=== PATIENT | female | born 1955 ===

== ENCOUNTER 2021-03-06 17:44 | Emergency (ER) | payer MEDICARE, OTHER ==
[2021-03-06] MEDS ORDERED: Sodium Chloride 0.9% 10 ML Syringe FLUSH PRN (17:51)
[2021-03-06] MEDS ORDERED: 50% Dextrose in Water 50 ML Syringe IVPUSH PRN (17:52)
[2021-03-06] MEDS ORDERED: Glucagon,Human Recombinant 1 MG Vial IM PRN (17:52)
[2021-03-06] MEDS: Insulin Regular, Human 100 Units/ML 3 ML Vial IV ONE ×2 (18:00→20:41)
[2021-03-06] MEDS: Sodium Chloride 0.9% 1,000 ML IV ONE (18:00)
--- NOTE | 2021-03-06 18:40 | EDM.PDOC ---
ED HPI GENERAL MEDICAL PROBLEM - General Chief Complaint: Diabetic Complaint Stated Complaint: HYPOGLYCEMIA Time Seen by Provider: 03/06/21 17:50 Source of Information: Reports: Other (friends ) History Limitations: Reports: Altered Mental Status - History of Present Illness INITIAL COMMENTS - FREE TEXT/NARRATIVE: patient with a h/o T1DM who was brought to the ER due to confusion and AMS. blood sugar check by EMS - was unreadable - high. patient is from [place] and visiting here on a trip. Per her friends, she was doing ok yesterday, but this morning she was complaining of not feeling well. Has an insulin pump that has been recently installed. Patient was last seen normal was this morning,, but at 5pm, her friends returned back to the cabin where she was, and found her in a distress and she complained to them that she isn't feeling well. - Related Data Allergies Allergy/AdvReac Type Severity Reaction Status Date / Time Unable to Assess Allergy Unverified 03/06/21 19:37 Home Meds: Home Meds . [Unable to Verify Home Med List] 03/06/21 [History] Past Medical History Endocrine/Metabolic History: Reports: Diabetes, Type I ED ROS GENERAL - Review of Systems Review Of Systems: Unable To Obtain (due to patient's confusion and AMS) Reason Not Obtained: confusion ED EXAM GENERAL NO PERIP PULSE - Physical Exam Exam: See Below Exam Limited By: Altered Mental Status General Appearance: Lethargic, Moderate Distress, Other (fruity smell ) Eye Exam: Bilateral Eye: EOMI Head: Atraumatic, Normocephalic Neck: Normal Inspection Respiratory/Chest: No Respiratory Distress, Lungs Clear Cardiovascular: Normal Peripheral Pulses, Regular Rate, Rhythm GI/Abdominal: Normal Bowel Sounds, Soft, Non-Tender Extremities: Normal Inspection, Normal Range of Motion Neurological: Disoriented Course - Vital Signs Last Recorded V/S: Last Vital Signs Temp 36.7 C 03/06/21 17:44 Pulse 73 03/06/21 21:05 Resp 16 03/06/21 21:05 BP 106/38 L 03/06/21 21:05 Pulse Ox 75 L 03/06/21 21:05 - Orders/Labs/Meds Orders: Active Orders 24 hr Category Date Time Status EKG Documentation Completion [RC] ASDIRECTED Care 03/06/21 17:51 Active Pearson Catheter Insertion [Insert Urinary Catheter] [OM. Care 03/06/21 18:00 Ordered PC] Q24H Urinary Catheter Assessment [RC] ASDIRECTED Care 03/06/21 18:00 Active GLUCOSE RANDOM [CHEM] Stat Lab 03/06/21 20:00 Ordered Dextrose 50% in Water Med 03/06/21 17:52 Active 50 ml IVPUSH ASDIRECTED PRN Glucagon,Human Recombinant [GlucaGen] Med 03/06/21 17:52 Active 1 mg IM ASDIRECTED PRN Insulin Regular, Human [NovoLIN R] 100 unit Med 03/06/21 19:00 Active Sodium Chloride 0.9% [Normal Saline] 100 ml IV TITRATE Lactated Ringers [Ringers, Lactated] 1,000 ml Med 03/06/21 20:17 Active IV BOLUS Sodium Chloride 0.9% [Normal Saline] 1,000 ml Med 03/06/21 19:00 Active IV ASDIRECTED Sodium Chloride 0.9% [Saline Flush] Med 03/06/21 17:51 Active 10 ml FLUSH ASDIRECTED PRN Saline Lock Insert [OM.PC] Routine Oth 03/06/21 17:51 Ordered Medication Orders Dextrose/Water (50% Dextrose In Water 50 Ml Syringe) 50 ml IVPUSH ASDIRECTED PRN PRN Reason: Hypoglycemia Glucagon (Glucagon,Human Recombinant 1 Mg Vial) 1 mg IM ASDIRECTED PRN PRN Reason: Hypoglycemia Insulin Human Regular 100 unit (/ Sodium Chloride) 100 mls @ 9.072 mls/hr IV TITRATE SARKIS; Protocol Last Admin: 03/06/21 19:07 Dose: 0.1 units/kg/hr, 9.072 mls/hr Documented by: GRISELDA Cosigned by: LELO Sodium Chloride (Normal Saline) 1,000 mls @ 999 mls/hr IV ASDIRECTED SARIKS Last Admin: 03/06/21 19:19 Dose: 999 mls/hr Documented by: SHIVA Lactated Ringer's (Ringers, Lactated) 1,000 mls @ 500 mls/hr IV BOLUS ONE Stop: 03/06/21 22:16 Last Admin: 03/06/21 20:18 Dose: 500 mls/hr Documented by: GRISELDA Sodium Chloride (Sodium Chloride 0.9% 10 Ml Syringe) 10 ml FLUSH ASDIRECTED PRN PRN Reason: Keep Vein Open Labs: Laboratory Tests 03/06/21 03/06/21 03/06/21 Range/Units 17:20 17:20 18:20 WBC 24.5 H* (4.0-11.0) K/uL RBC 3.35 L (3.80-5.80) M/uL Hgb 10.5 L (11.5-16.5) g/dL Hct 37.1 (37.0-47.0) % MCV 111 H (76-96) fL MCH 31.3 (27.0-32.0) pg MCHC 28.3 L (31.0-35.0) g/dL RDW 13.9 (11.0-16.0) % Plt Count 380 (150-500) K/uL MPV 11.5 H (6.0-10.0) fL ABG pH (7.35-7.45) ABG pCO2 (35-45) mmHg ABG pO2 (80-105) mmHg ABG HCO3 (22-26) mmol/L ABG O2 Saturation (95-98) % ABG Base Excess (-2-2) O2 Delivery Device Sodium 120 L (136-145) mmol/L Potassium 6.7 H* (3.5-5.1) mmol/L Chloride 82 L* (98-107) mmol/L Carbon Dioxide 8.9 L* (21.0-32.0) mmol/L Anion Gap 35.8 H (5.0-15.0) mmol/L BUN 83 H* (8-26) mg/dL Creatinine 3.45 H* (0.55-1.02) mg/dL Est Cr Clr Drug Dosing TNP Estimated GFR (MDRD) 13 L (>60) MLS/MIN BUN/Creatinine Ratio 24.1 (6-25) Glucose > 1200 H* (74-100) mg/dL Calcium 8.4 L (8.5-10.1) mg/dL Total Bilirubin 1.7 H (0.0-1.0) mg/dL AST 95 H (15-37) U/L ALT 74 (12-78) U/L Alkaline Phosphatase 102 (46-116) U/L Total Protein 6.3 L (6.4-8.2) g/dL Albumin 3.6 (3.4-5.0) g/dL Globulin 2.7 (2.2-4.2) g/dL Albumin/Globulin Ratio 1.3 (0.8-2.0) Urine Color Yellow Urine Appearance Clear (CLEAR) Urine pH 5.0 (5.0-8.0) Ur Specific [place] 1.025 (1.003-1.030) Urine Protein Negative (NEGATIVE) mg/dL Urine Glucose (UA) 500 H (NEGATIVE) mg/dL Urine Ketones 15 H (NEGATIVE) mg/dL Urine Occult Blood Trace-lysed H (NEGATIVE) Urine Nitrite Negative (NEGATIVE) Urine Bilirubin Negative (NEGATIVE) Urine Urobilinogen 0.2 (0.2-1.0) E.U./dL Ur Leukocyte Esterase Negative (NEGATIVE) U Hyaline Cast (Auto) Few /HPF Urine RBC 0-5 H /HPF Urine WBC 0-5 H /HPF Ur Squamous Epith Cells Few /HPF Ketones Large H (NEGATIVE) SARS-CoV-2 RNA (KRISTEN) (NEGATIVE) 03/06/21 03/06/21 03/06/21 Range/Units 18:45 19:44 19:58 WBC (4.0-11.0) K/uL RBC (3.80-5.80) M/uL Hgb (11.5-16.5) g/dL Hct (37.0-47.0) % MCV (76-96) fL MCH (27.0-32.0) pg MCHC (31.0-35.0) g/dL RDW (11.0-16.0) % Plt Count (150-500) K/uL MPV (6.0-10.0) fL ABG pH 6.97 L* (7.35-7.45) ABG pCO2 20.4 L (35-45) mmHg ABG pO2 77.5 L (80-105) mmHg ABG HCO3 4.7 L (22-26) mmol/L ABG O2 Saturation 85.8 L (95-98) % ABG Base Excess -27.1 L (-2-2) O2 Delivery Device Room air Sodium 122 L (136-145) mmol/L Potassium 5.7 H (3.5-5.1) mmol/L Chloride 86 L* (98-107) mmol/L Carbon Dioxide 8.5 L* (21.0-32.0) mmol/L Anion Gap 33.2 H (5.0-15.0) mmol/L BUN 80 H* (8-26) mg/dL Creatinine 3.57 H* (0.55-1.02) mg/dL Est Cr Clr Drug Dosing 15.28 Estimated GFR (MDRD) 13 L (>60) MLS/MIN BUN/Creatinine Ratio 22.4 (6-25) Glucose > 1200 H* (74-100) mg/dL Calcium 7.6 L (8.5-10.1) mg/dL Total Bilirubin (0.0-1.0) mg/dL AST (15-37) U/L ALT (12-78) U/L Alkaline Phosphatase (46-116) U/L Total Protein (6.4-8.2) g/dL Albumin (3.4-5.0) g/dL Globulin (2.2-4.2) g/dL Albumin/Globulin Ratio (0.8-2.0) Urine Color Urine Appearance (CLEAR) Urine pH (5.0-8.0) Ur Specific [place] (1.003-1.030) Urine Protein (NEGATIVE) mg/dL Urine Glucose (UA) (NEGATIVE) mg/dL Urine Ketones (NEGATIVE) mg/dL Urine Occult Blood (NEGATIVE) Urine Nitrite (NEGATIVE) Urine Bilirubin (NEGATIVE) Urine Urobilinogen (0.2-1.0) E.U./dL Ur Leukocyte Esterase (NEGATIVE) U Hyaline Cast (Auto) /HPF Urine RBC /HPF Urine WBC /HPF Ur Squamous Epith Cells /HPF Ketones (NEGATIVE) SARS-CoV-2 RNA (KRISTEN) Negative (NEGATIVE) Meds: Medications Generic Name Dose Route Start Last Admin Trade Name Freq PRN Reason Stop Dose Admin Dextrose/Water 50 ml 03/06/21 17:52 50% Dextrose In Water 50 Ml Syringe IVPUSH ASDIRECTED PRN Hypoglycemia Glucagon 1 mg 03/06/21 17:52 Glucagon,Human Recombinant 1 Mg Vial IM ASDIRECTED PRN Hypoglycemia Insulin Human Regular 100 unit 100 mls @ 9.072 mls/hr 03/06/21 19:00 03/06/21 19:07 / Sodium Chloride IV 0.1 units/kg/hr TITRATE SARKIS 9.072 mls/hr Administration Protocol 0.1 UNITS/KG/HR Sodium Chloride 1,000 mls @ 999 mls/hr 03/06/21 19:00 03/06/21 19:19 Normal Saline IV 999 mls/hr ASDIRECTED SARKIS Administration Lactated Ringer's 1,000 mls @ 500 mls/hr 03/06/21 20:17 03/06/21 20:18 Ringers, Lactated IV 03/06/21 22:16 500 mls/hr BOLUS ONE Administration Sodium Chloride 10 ml 03/06/21 17:51 Sodium Chloride 0.9% 10 Ml Syringe FLUSH ASDIRECTED PRN Keep Vein Open Discontinued Medications Generic Name Dose Route Start Last Admin Trade Name Freq PRN Reason Stop Dose Admin Sodium Chloride 1,000 mls @ 999 mls/hr 03/06/21 17:52 03/06/21 18:00 Normal Saline IV 03/06/21 18:52 999 mls/hr .BOLUS ONE Administration Insulin Human Regular 10 unit 03/06/21 17:52 03/06/21 18:00 Insulin Regular, Human 100 Units/Ml 3 Ml Vial IV 03/06/21 17:53 10 units ONETIME ONE Administration Sodium Bicarbonate 5 meq 03/06/21 19:07 03/06/21 19:13 Sodium Bicarbonate 4.2% 5 Meq/10 Ml Syringe IVPUSH 03/06/21 19:08 5 meq NOW STA Administration - Re-Assessments/Exams Free Text/Narrative Re-Assessment/Exam: IV line was started. bedside sugar check is >600 IVF bolus NS 2 liter insulin 10 units regular IV labs including CBC, CMP, ABG and UA. labs significant for BS 1200, Cr 3.8, K 6.5., Na 120 Insulin drip was started 0.1mg/kg/hr Bicarb bolus as well given the critical nature of the disease presentation - decision to transfer to higher level of care. [facility] - no available beds Contacted [facility]- spoke with Sports Manager Dr. Paul - who accepted the patient 03/06/21 19:55 Until flight crew arrives - will resume blood check q1hr Departure - Departure Time of Disposition: 21:18 Disposition: DC/Tfer to [facility] Condition: Serious Clinical Impression: JARRETT (acute kidney injury), Hyperkalemia DKA (diabetic ketoacidoses) Qualifiers: Diabetes mellitus type: type 1 Diabetes mellitus complication detail: with coma Qualified Code(s): E10.11 - Type 1 diabetes mellitus with ketoacidosis with coma - Discharge Information *PRESCRIPTION DRUG MONITORING PROGRAM REVIEWED*: Not Applicable *COPY OF PRESCRIPTION DRUG MONITORING REPORT IN PATIENT SHE[place]BY: Not Applicable Referrals: PCP,None [Primary Care Provider] - Forms: ED Department Discharge Sepsis Event Note (ED) - Focused Exam Vital Signs: Vital Signs Temp Pulse Resp BP Pulse Ox 03/06/21 21:05 73 16 106/38 L 75 L 03/06/21 20:35 86 28 H 98/80 99 03/06/21 20:29 77 20 106/32 L 74 L 03/06/21 19:30 77 14 121/40 L 98 03/06/21 19:27 85 24 H 99/41 L 99 03/06/21 19:26 24 H 129/33 L 98 03/06/21 17:44 36.7 C 64 24 H 131/48 L 92 L - Problem List & Annotations (1) JARRETT (acute kidney injury) SNOMED Code(s): 12395983, 51093387 Code(s): N17.9 - ACUTE KIDNEY FAILURE, UNSPECIFIED Status: Acute Priority: High Current Visit: Yes (2) DKA (diabetic ketoacidoses) SNOMED Code(s): 871273406, 732067634 Code(s): E11.10 - TYPE 2 DIABETES MELLITUS WITH KETOACIDOSIS WITHOUT COMA Status: Acute Priority: High Current Visit: Yes Qualifiers: Diabetes mellitus type: type 1 Diabetes mellitus complication detail: with coma Qualified Code(s): E10.11 - Type 1 diabetes mellitus with ketoacidosis with coma (3) Hyperkalemia SNOMED Code(s): 90117460 Code(s): E87.5 - HYPERKALEMIA Status: Acute Priority: High Current Visit: Yes - Problem List Review Problem List Initiated/Reviewed/Updated: Yes - My Orders Last 24 Hours: My Active Orders 03/06/21 17:51 EKG Documentation Completion [RC] ASDIRECTED Sodium Chloride 0.9% [Saline Flush] 10 ml FLUSH ASDIRECTED PRN Saline Lock Insert [OM.PC] Routine 03/06/21 17:52 Dextrose 50% in Water 50 ml IVPUSH ASDIRECTED PRN Glucagon,Human Recombinant [GlucaGen] 1 mg IM ASDIRECTED PRN 03/06/21 18:00 Pearson Catheter Insertion [Insert Urinary Catheter] [OM.PC] Q24H Urinary Catheter Assessment [RC] ASDIRECTED 03/06/21 19:00 Insulin Regular, Human [NovoLIN R] 100 unit Sodium Chloride 0.9% [Normal Saline] 100 ml IV TITRATE Sodium Chloride 0.9% [Normal Saline] 1,000 ml IV ASDIRECTED 03/06/21 20:00 GLUCOSE RANDOM [CHEM] Stat 03/06/21 20:17 Lactated Ringers [Ringers, Lactated] 1,000 ml IV BOLUS - Assessment/Plan Last 24 Hours: My Active Orders 03/06/21 17:51 EKG Documentation Completion [RC] ASDIRECTED Sodium Chloride 0.9% [Saline Flush] 10 ml FLUSH ASDIRECTED PRN Saline Lock Insert [OM.PC] Routine 03/06/21 17:52 Dextrose 50% in Water 50 ml IVPUSH ASDIRECTED PRN Glucagon,Human Recombinant [GlucaGen] 1 mg IM ASDIRECTED PRN 03/06/21 18:00 Pearson Catheter Insertion [Insert Urinary Catheter] [OM.PC] Q24H Urinary Catheter Assessment [RC] ASDIRECTED 03/06/21 19:00 Insulin Regular, Human [NovoLIN R] 100 unit Sodium Chloride 0.9% [Normal Saline] 100 ml IV TITRATE Sodium Chloride 0.9% [Normal Saline] 1,000 ml IV ASDIRECTED 03/06/21 20:00 GLUCOSE RANDOM [CHEM] Stat 03/06/21 20:17 Lactated Ringers [Ringers, Lactated] 1,000 ml IV BOLUS Plan: IVF bolus Insulin drip Bicarbonate Pearson for strict Is/Os monitor electrolytes correction
[2021-03-06] MEDS: Sodium Chloride 0.9% 1,000 ML IV SCH (19:19)
[2021-03-06] MEDS: Lactated Ringers 1,000 ML IV ONE (20:18)
== END 2021-03-06 21:30 ==
LOC: LB.ED 17:44
DX: E10.11 Type 1 diabetes mellitus with ketoacidosis with coma (principal); N17.9 Acute kidney failure, unspecified; E87.5 Hyperkalemia; Z20.822 Contact with and (suspected) exposure to COVID-19
CPT/HCPCS: 36415; 36600; 51702; 80048; 80053; 81001; 82009; 82803; 85027; 93005; 96374; 96376; 99285; A0425; A0429; J1815; J7030; J7120; U0002